=== PATIENT | male | born 1975 | race Caucasian/White ===

== ENCOUNTER 2022-12-24 22:39 | Emergency (ER) | payer MEDICAID, SELFPAY ==
[2022-12-24 23:05] VITALS: BP 165/98; PULSE 105; RESP 16; TEMP 36.9; O2SAT 100; BMI 27.1
--- NOTE | 2022-12-24 23:10 | DI.RAD.S_ITS ---
PROCEDURE: XR FOOT RT MIN 3V INDICATIONS: Kicked counter, pain, swelling and bruising to foot TECHNIQUE: 3 views of the foot were acquired. COMPARISON: None. FINDINGS: Bones: No fractures or dislocations. No suspicious bony lesions. Soft tissues: No tibiotalar joint effusion. Achilles tendon appears normal. IMPRESSION: No acute bony abnormality. Dictated by: Clifton Phillips M.D. on 12/24/2022 at 23:44 Approved by: Clifton Phillips M.D. on 12/24/2022 at 23:45
[2022-12-24 23:39] LABS: Basophils Absolute Auto 100 /uL (0-100); Basophils Percent Auto 1.4 % (0-2); Eosinophils Absolute Auto 200 /uL (0-450); Eosinophils Percent Auto 2.7 % (2-4); Hematocrit 40.5 % (41-53); Hemoglobin 14.9 g/dL (13.5-17.5); Lymphocytes Absolute Auto 2100 /uL (1100-4500); Lymphocytes Percent Auto 29.4 % (25-40); Mean Corpuscular HGB Conc 36.7 % (30-36); Mean Corpuscular Hemoglobin 29.9 PG (26-34); Mean Corpuscular Volume 81.3 fL (80-100); Monocytes Absolute Auto 700 /uL (0-900); Monocytes Percent Auto 9.5 % (3-14); Neutrophils Absolute Auto 4000 /uL (1500-7000); Platelet Count 245 X10^3/uL (150-400); Red Blood Cell Count 4.98 X10^6/uL (4.5-5.9); Red Cell Distribution Width 12.7 % (11.6-14.8)
[2022-12-24 23:46] LABS: Alanine Aminotransferase 28 IU/L (<50); Albumin 3.8 g/dL (3.5-5.0); Albumin Globulin Ratio 1.3 (1.0-2.8); Alkaline Phosphatase 157 U/L (38-126); Aspartate Aminotransferase 18 IU/L (17-59); BUN Creatinine Ratio 17.8 (6-22); Bilirubin Total 0.7 mg/dL (0.2-1.3); Blood Urea Nitrogen 13 mg/dL (9-20); Calcium 9.3 mg/dL (8.4-10.2); Carbon Dioxide 28 mmol/L (22-32); Chloride 95 mmol/L (98-107); Estimated Glomerular Filt Rate > 60 mL/min (>60); Globulin 2.9 g/dL (1.7-4.1); Glucose 362 mg/dL (70-100); HEMOLYSIS < 15 (0-50); Potassium 4.1 mmol/L (3.4-5.1); Sodium 131 mmol/L (137-145); Total Protein 6.7 g/dL (6.3-8.2)
[2022-12-25 00:01] LABS: Add Manual Diff / Slide Review SLIDE REVIEW
[2022-12-25 00:03] LABS: Rouleaux 2+
[2022-12-25 00:16] VITALS: BP 189/104; PULSE 96; O2SAT 98
[2022-12-25 00:18] VITALS: BP 173/100; PULSE 90; O2SAT 99
[2022-12-25 00:30] VITALS: BP 188/102; PULSE 92; O2SAT 100
[2022-12-25 01:00] VITALS: BP 166/95; PULSE 97; O2SAT 98
--- NOTE | 2022-12-25 01:09 | ED.LOWEXIN ---
HPI - Extremity Injury (Lower) General Chief Complaint: Extremity Injury, Lower Stated Complaint: rt foot pain, swelling Time Seen by Provider: 12/25/22 01:09 Source: patient Mode of arrival: Wheelchair Limitations: no limitations History of Present Illness HPI Narrative: This is a 47-year-old male with known history of hypertension and diabetes currently not treated. Patient states about a week he fell backwards and kicked bar stool causing a wound on his toe on the right foot. Patient states since then has had increasing pain, the wound he states seems to got a little bit bigger and has had redness streaking from his toe into his foot. He denies fevers or chills. No chest pain or shortness of breath no cold cough or congestion. No nausea or vomiting, no GI or urinary symptoms. States he areas painful. He has been looking in his foot each day. He states he is a known diabetic he has been trying to do diet control but used to be on metformin. He states he did not tolerate the side effects very well. He also used to be on medication for hypertension. Patient's dates he is allergic to narcotics and states it is his airway swell up. Patient states he does smoke regularly, no regular alcohol, smokes marijuana occasionally smokes methamphetamines but denies any injection drug use. Patient states that he does not currently have a prior QRS care physician. He lives on [place] but states he is going to be over here for the next week or so. Related Data Previous Rx's Medication Instructions Recorded doxycycline hyclate 100 mg tablet 100 mg PO BID #20 tabs 12/25/22 Allergies Allergy/AdvReac Type Severity Reaction Status Date / Time Opioids - Morphine Analogues Allergy Anaphylaxis Verified 12/24/22 23:04 Review of Systems Review of Systems ROS Unobtainable: All systems reviewed & are unremarkable except as noted in HPI and below Patient History Social History Smoking Status: Current every day smoker Smoking Status: Current every day smoker alcohol intake frequency: holidays/special occasions only Substance Use Type: marijuana and methamphetamine Exam Narrative Exam Narrative: GENERAL: Alert and oriented x three, well-nourished male in mild distress. HEENT: Head normocephalic, atraumatic, EOMI, pupils reactive, face symmetric, moist mucous membranes NECK: Supple, full range of motion CARDIOVASCULAR: Regular rate and rhythm without murmurs, rubs or gallops. RESPIRATORY: Breath sounds equal bilaterally, no wheezes rales or rhonchi. ABDOMEN: Soft, nontender. Normoactive bowel sounds all 4 quadrants. No guarding or rebound, rigidity, no mass : No CVA tenderness EXTREMITIES: Normal range of motion, no clubbing. Neurovascularly intact. Patient has some mild edema particularly of the 5th toe on the right foot and extending over the dorsum of the foot there is some mild erythema. There is a a 0.5 cm by 3/4 cm wound over the dorsum of the toe with some mild skin breakdown patient does not have any foul odor, there is some serosanguineous drainage. There is some warmth to the area. He has full range of motion, cap refills less than 2 seconds in all 5 toes with palpable dorsalis pedis pulse. Patient is tender to touch. NEUROLOGICAL: Cranial nerves II through XII grossly intact. Moving all extremities SKIN: Warm, dry, no petechiae, no rashes or lesions otherwise noted. Initial Vital Signs Initial Vital Signs: Vital Signs Temperature 98.5 F 12/24/22 23:05 Pulse Rate 105 H 12/24/22 23:05 Respiratory Rate 16 12/24/22 23:05 Blood Pressure 165/98 H 12/24/22 23:05 Pulse Oximetry 100 12/24/22 23:05 Oxygen Delivery Method Room Air 12/24/22 23:05 Course Orders Ordered: ED Orders 12/24/22 23:10 XR foot RT min 3V Stat 12/24/22 23:27 CMP [Comprehensive Metabolic Panel] Stat Complete Blood Count AUTO DIFF Stat Discontinued Medications Acetaminophen (Acetaminophen 325 Mg Tablet) 975 mg PO NOW ONE Stop: 12/25/22 01:20 Last Admin: 12/25/22 01:28 Dose: 975 mg Documented By: TRICIA Doxycycline Hyclate (Doxycycline Hyclate 100 Mg Tablet) 100 mg PO NOW ONE Stop: 12/25/22 01:19 Last Admin: 12/25/22 01:28 Dose: 100 mg Documented By: TRICIA Vital Signs Vital signs: Vital Signs - 8 hr 12/24/22 23:05 12/25/22 00:16 12/25/22 00:16 Temperature 98.5 F Pulse Rate 105 H 96 H Respiratory Rate 16 Blood Pressure 165/98 H 189/104 H Pulse Oximetry 100 98 Oxygen Delivery Method Room Air 12/25/22 00:18 12/25/22 00:18 12/25/22 00:30 Temperature Pulse Rate 90 Respiratory Rate Blood Pressure 173/100 H 188/102 H Pulse Oximetry 99 Oxygen Delivery Method 12/25/22 00:30 12/25/22 01:00 12/25/22 01:00 Temperature Pulse Rate 92 H 97 H Respiratory Rate Blood Pressure 166/95 H Pulse Oximetry 100 98 Oxygen Delivery Method 12/25/22 01:30 12/25/22 01:30 Temperature Pulse Rate 95 H Respiratory Rate Blood Pressure 158/92 H Pulse Oximetry 99 Oxygen Delivery Method Room Air MDM - Extremity Injury (Lower) Lab Data 12/24/22 23:27 12/24/22 23:27 Labs: Lab Results 12/24/22 Range/Units 23:27 WBC 7.0 (4.5-11.0) X10^3/uL RBC 4.98 (4.5-5.9) X10^6/uL Hgb 14.9 (13.5-17.5) g/dL Hct 40.5 L (41-53) % MCV 81.3 (80-100) fL MCH 29.9 (26-34) PG MCHC 36.7 H (30-36) % RDW 12.7 (11.6-14.8) % Plt Count 245 (150-400) X10^3/uL Neut % (Auto) 57.0 (50-75) % Lymph % (Auto) 29.4 (25-40) % [place] % (Auto) 9.5 (3-14) % Eos % (Auto) 2.7 (2-4) % Baso % (Auto) 1.4 (0-2) % Neut # (Auto) 4000 (9812-8424) /uL Lymph # (Auto) 2100 (8273-7229) /uL [place] # (Auto) 700 (0-900) /uL Eos # (Auto) 200 (0-450) /uL Baso # (Auto) 100 (0-100) /uL RBC Morphology See below Rouleaux 2+ H Sodium 131 L (137-145) mmol/L Potassium 4.1 (3.4-5.1) mmol/L Chloride 95 L (98-107) mmol/L Carbon Dioxide 28 (22-32) mmol/L BUN 13 (9-20) mg/dL Creatinine 0.73 (0.66-1.25) mg/dL Estimated GFR > 60 (>60) mL/min BUN/Creatinine Ratio 17.8 (6-22) Glucose 362 H (70-100) mg/dL Calcium 9.3 (8.4-10.2) mg/dL Total Bilirubin 0.7 (0.2-1.3) mg/dL AST 18 (17-59) IU/L ALT 28 (<50) IU/L Alkaline Phosphatase 157 H (38-126) U/L Total Protein 6.7 (6.3-8.2) g/dL Albumin 3.8 (3.5-5.0) g/dL Globulin 2.9 (1.7-4.1) g/dL Albumin/Globulin Ratio 1.3 (1.0-2.8) Point of Care Testing Glucose POC 376 Imaging Data Extremity x-ray #1: Radiologist's Impression: [place] [address] XRay Report Signed Patient: John Mejia MR#: [id number] : 1975 Acct:[id number] Age/Sex: 47 / M Date of Service: 12/24/22 Loc: ED Accession Number: [id number] Procedure: XR foot RT min 3V Ordering Provider: January Grover D.O. PROCEDURE: XR FOOT RT MIN 3V INDICATIONS: Kicked counter, pain, swelling and bruising to foot TECHNIQUE: 3 views of the foot were acquired. COMPARISON: None. FINDINGS: Bones: No fractures or dislocations. No suspicious bony lesions. Soft tissues: No tibiotalar joint effusion. Achilles tendon appears normal. IMPRESSION: No acute bony abnormality. Dictated by: Clifton Phillips M.D. on 12/24/2022 at 23:44 Approved by: Clifton Phillips M.D. on 12/24/2022 at 23:45 [facility] Narrative Medical decision making narrative: Discussed findings with patient today, he is afebrile was slightly tachycardic upon arrival, labs show white count of 7 hemoglobin of 14.9 with platelets of 245 no significant leftward shift they do note rouleaux 2+. Sodium is 131 potassium 4 1 with chloride 95, normal BUN and creatinine, glucose is 362, alk-phos is 157 but otherwise normal LFTs. Patient's x-ray does not show any obvious changes to the bone, foreign body or other changes. Patient does have a small wound with erythema surrounding and tracking over the dorsum of the foot consistent with a cellulitis and likely having difficulty with healing and increased risk infection with his uncontrolled diabetes. Patient does not wish to start any medications he states he does not tolerate the metformin well but he is open to following up with primary care for other options for medication control. Patient and I discussed will start oral antibiotic. He notes he smokes methamphetamines occasion but denies IV drug use will cover for MRSA. Patient was given options for primary care follow-up. Discharge Plan Departure Patient Disposition: Home Clinical Impression: Open wound of toe of left foot, Diabetes, Cellulitis of foot, right Instructions: DI for Wound Infection Activity Restrictions/Additional Instructions: Follow up for recheck in the next 2-3 days if you are not having any improvement on your symptoms. I would recommend following up with primary care to be restarted on medications for your diabetes as this can make it very difficult for your wounds to heal. There are many medications besides metformin that can be used to treat your diabetes. Included is a card that has multiple options for local primary care offices that currently have new openings. Please call to set up an appointment. You can take Tylenol up to a 1000 mg every 6 hours as needed for pain, you may take ibuprofen up to 600 mg every 6 hours as needed. Take antibiotics until completed. Prescription [place] [facility] [place]. Please return for fevers, rapidly worsening redness, increasing drainage, increasing pain, if the wound is growing in size, having nausea vomiting or other new or concerning changes. Prescriptions: New doxycycline hyclate 100 mg tablet 100 mg PO BID Qty: 20 0RF Stand Alone Forms: Patient Portal/API
[2022-12-25] MEDS: DOXYCYCLINE HYCLATE 100 MG TABLET PO (01:28)
[2022-12-25] MEDS: ACETAMINOPHEN 325 MG TABLET 975 MG PO (01:28)
[2022-12-25 01:30] VITALS: BP 158/92; PULSE 95; O2SAT 99
== END 2022-12-25 02:04 | disposition home or self-care (01) ==
PROVIDERS: Emergency Provider Emergency Medicine
DX: L03.115 Cellulitis of right lower limb (principal); S91.109A Unspecified open wound of unspecified toe(s) without damage to nail, initial encounter; E11.9 Type 2 diabetes mellitus without complications; R60.9 Edema, unspecified
CPT/HCPCS: 36415; 73630; 80053; 82962; 85025; 99283; 99284